=== PATIENT | male | born 1940 | race Caucasian/White ===

== ENCOUNTER 2022-01-08 17:50 | Inpatient (IN) | payer MEDICARE, OTHER ==
[~2022-01-08] VITALS: Ht 190.5 cm; Wt 94.4 kg
[2022-01-08 19:00] VITALS: BP 125/51
[2022-01-08] MEDS: PATCH REMOVAL. MC SCH (21:00)
[2022-01-08] MEDS ORDERED: LISI20TA18 PO (21:23)
[2022-01-08] MEDS ORDERED: SIMV40TA18 PO (21:23)
[2022-01-08] MEDS ORDERED: APIX5TAB PO (21:23)
[2022-01-08] MEDS ORDERED: METO50TA4 PO (21:23)
[2022-01-08] MEDS ORDERED: hydrALAZINE 20 MG/ML VIAL. IVP PRN (21:45)
[2022-01-08] MEDS ORDERED: ONDANSETRON PF 4 MG/2 ML VIAL. IVP PRN (21:45)
[2022-01-08] MEDS ORDERED: HYDROmorphone 2 MG/ML INJ. IVP PRN (21:45)
[2022-01-08] MEDS ORDERED: fentaNYL PF VIAL 100 MCG/2 ML VIAL IVP PRN (21:45)
[2022-01-08] MEDS ORDERED: ACETAMINOPHEN 325 MG TABLET. PO PRN (21:45)
[2022-01-08] MEDS ORDERED: POLYETHYLENE GLYCOL 3350 17 GM PACKET. PO PRN (21:45)
[2022-01-08] MEDS ORDERED: oxyCODONE IR 5 MG TABLET PO PRN (21:45)
[2022-01-08] MEDS ORDERED: guaiFENesin DM 200MG/20MG 10 ML SYRUP PO PRN (21:45)
[2022-01-08] MEDS: PSYLLIUM HUSK (SUGAR FREE) 1 PKT PACKET PO SCH (22:00)
[2022-01-08 23:00] VITALS: BP 126/49
[2022-01-09 03:00] VITALS: BP 121/57
[2022-01-09] MEDS: traMADol 50 MG TABLET PO PRN ×2 (06:39→16:15)
[2022-01-09 07:00] VITALS: BP 117/55
--- NOTE | 2022-01-09 08:35 | PDOC1 ---
History and Physical Date of Service: DOS: DATE: 01/09/22 TIME: 08:20 Chief Complaint: Chief Complain: Fall History of Present Illness: HPI: 81-year-old male coming in for right posterior rib pain. Patient states he was out gardening and stepped backwards and lost his balance and fell onto his right back. Denies any history of loss of consciousness. Patient is also complaining of a scrape to his right knee. Patient is currently taking Eliquis. Patient states he feels like he has been fractures. Past Medical/Surgical History: PMH/PSH: Past Medical History: Arthritis, DVT, High Cholesterol, Hypertension, Kidney Stones, pulmonary embolism; A FLUTTER Past Surgical History: Appendectomy, Hip Replacement, Tonsillectomy, ABD HERNIA X 5; LEFT ANKLE; RIGHT ELBOW Allergies: Allergies: Coded Allergies: ampicillin (Verified Allergy, Intermediate, Hives, 01/08/22) ibuprofen (Verified Allergy, Intermediate, 01/08/22) Family History: Family History: Reviewed with no relative findings in the chart Social History: Social History: Denies any alcohol, tobacco or drug abuse Current Medications: Current Medications Current Medications Acetaminophen (Tylenol) 650 mg PRN Q6HRS PRN PO MILD PAIN / TEMP > 100.3'F; Start 01/08/22 at 21:45 Ondansetron HCl (Zofran) 4 mg PRN Q4HRS PRN IVP NAUSEA/VOMITING 1ST CHOICE; Start 01/08/22 at 21:45 Tramadol HCl (Ultram) 50 mg PRN Q6HRS PRN PO MODERATE PAIN 4-6 Last administered on 01/09/22at 06:39; Start 01/08/22 at 21:45 Guaifenesin (Robitussin Dm) 10 ml PRN Q6HRS PRN PO COUGH; Start 01/08/22 at 21:45 Hydralazine HCl (Apresoline Inj) 10 mg PRN Q4HRS PRN IVP ELEVATED BP, SEE COMMENTS; Start 01/08/22 at 21:45 Fentanyl Citrate (Fentanyl 2ml Vial) 25 mcg PRN Q3HRS PRN IVP SEVERE PAIN 7-10; Start 01/08/22 at 21:45 Hydromorphone HCl (Dilaudid) 0.5 mg PRN Q3HRS PRN IVP SEVERE PAIN 7-10; Start 01/08/22 at 21:45 Oxycodone HCl (Roxicodone) 5 mg PRN Q6HRS PRN PO SEVERE PAIN 7-10; Start 01/08/22 at 21:45 Psyllium Hydrophilic Mucilloid (Metamucil Fiber Packet) 1 pkt QHS PO ; Start 01/08/22 at 22:00 Polyethylene Glycol (miraLAX PACKET) 17 gm PRN BID PRN PO CONSTIPATION 1ST CHOICE; Start 01/08/22 at 21:45 Lidocaine (Lidoderm) 1 patch DAILY TD ; Start 01/09/22 at 09:00 Miscellaneous (Lidoderm Patch Removal) 1 ea QHS MC ; Start 01/08/22 at 21:00 Active Scripts Active Reported Toprol XL (Metoprolol Succinate) 50 Mg Tab.er.24h 50 Mg PO QHS Simvastatin 40 Mg Tablet 40 Mg PO HS Lisinopril 20 Mg Tablet 20 Mg PO DAILY Eliquis (Apixaban) 5 Mg Tablet 5 Mg PO BID ROS: Review of Systems Review of System REVIEW OF SYSTEMS: GENERAL: Denies weakness SKIN: No bruising, hair changes or rashes. EYES: No blurred, double or loss of vision. NOSE AND THROAT: No history of nosebleeds, hoarseness or sore throat. HEART: No history of palpitations, chest pain or shortness of breath on exertion. LUNGS: Denies cough, hemoptysis, wheezing or shortness of breath. GASTROINTESTINAL: Denies changes in appetite, nausea, vomiting, diarrhea or constipation. GENITOURINARY: No history of frequency, urgency, hesitancy or nocturia. NEUROLOGIC: Denies history of numbness, tingling, or tremor. PSYCHIATRIC: No history of panic, anxiety or depression. ENDOCRINE: No history of heat or cold intolerance, polyuria or polydipsia. EXTREMITIES: Denies joint pain, pain on walking or stiffness. Physical Exam: Vital Signs: Vital Signs Date Time Temp Pulse Resp B/P (MAP) Pulse Ox O2 Delivery O2 Flow Rate FiO2 01/09/22 07:00 98.1 52 18 117/55 (75) 100 NonRebreather Mask 10.0 98.1 Physcial Exam: General: Well developed, well nourished, no acute distress, well appearing HEENT: Pupils equally round and reactive to light, EOMI, no discharge, normal conjunctiva Neck: Supple, no nuchal rigidity, no JVD, trachea midline, no tenderness Cardiac: RRR, no murmurs, no gallops, no rubs Chest/Lungs: CTAB, no wheeze, no rhonchi, no crackles. Tender to palpation over the right posterior chest wall. No step-offs or deformities of the back. Abdomen: soft, non-distended, no guarding, no peritoneal signs, non-tender Back: No point tenderness Extremities: no edema, pulses intact, non-tender,capillary refill <3 sec bilateral upper and lower extremities, Neuro: Alert and oriented x 4, no focal deficits, normal speech Labs: Labs: Labs from [facility] significant for BUN of 29 creatinine of 1.5, WBC 9.6 hemoglobin of 14.7 platelet count of 166. INR 1.0 Images: Images PROCEDURE: CT CHEST ABDOMEN PELVIS WO ADDENDUM ADDENDUM #1 Addendum: The exam also includes CT images of the chest, abdomen and pelvis without contrast. Chest: There is a trace right pleural effusion. There is a small right pneumothorax. There is slight angulation of the cortex of the anterior right third and fourth and fifth ribs likely due to nondisplaced fractures. There is also a minimally angulated fracture involving the lateral right sixth rib and mildly displaced fracture involving the lateral right seventh rib. There are healed fractures involving the anterior right ninth, tenth and eleventh ribs. No acute contralateral rib fracture is seen. There are degenerative changes involving the thoracic spine. No acute thoracic vertebral fracture is seen. There is right greater than left posterior dependent and basilar atelectasis. There is a 3 mL nodule within the left lung apex. There is a 2 mm nodule within the right lung apex. There is a small suspected pulmonary contusion involving the anterior superior right upper lobe. The heart is normal in size. There is coronary artery calcification. There is no lymphadenopathy. There is a tiny hiatal hernia. Abdomen and pelvis: No hepatic lesion is seen. The gallbladder is unremarkable. There are few pancreatic calcifications due to chronic pancreatitis. There is no acute pancreatitis. There is a small cyst or hemangioma within the spleen. There is no acute splenic finding. The adrenal glands are unremarkable. There is a 5 mm nonobstructing right renal stone. There is a 1.8 cm exophytic cyst within the lower pole of the left kidney. There is renal atrophy. There is no appendicitis. There is no bowel obstruction. There is no abnormal bowel wall thickening. The bladder is unremarkable. The prostate is enlarged. There is evidence of prior right inguinal hernia repair. There is a moderate fat-containing left internal hernia status post hernia repair. There is aortic and aortic branch vessel atherosclerosis. There is an IVC filter in expected position. There is a left hip arthroplasty. There is mild right hip osteoarthritis. There is lumbar scoliosis and multilevel degenerative listhesis. There is a moderate chronic appearing compression fracture with superior endplate Schmorl's node at L3. There is a chronic mild anterior wedge compression fracture at T12. The combination of degenerative changes results in significant foraminal and central canal stenosis at multiple lumbar levels. IMPRESSION: 1. Small right pneumothorax and trace right pleural effusion, likely a hemothorax. 2. Acute right sixth and seventh rib fractures and likely right third, fourth and fifth rib fractures. There are also chronic appearing right ninth, tenth and eleventh rib fractures. 3. Chronic appearing T12 and L3 compression fractures. 4. Tiny apical pulmonary nodules measuring up to 3 mm. Follow up can be performed in 1 year if there are risk factors for neoplasm. 5. 1.8 cm left renal cyst and right nephrolithiasis. 6. Moderate left inguinal hernia and bilateral hernia repair. EXAM: Head and cervical spine CT without contrast. HISTORY: Fall. Pain. TECHNIQUE: Computed tomographic images of the head and cervical spine were obtained without contrast. *One or more of the following individualized dose reduction techniques were utilized for this examination: 1. Automated exposure control. 2. Adjustment of the mA and/or kV according to patient size. 3. Use of iterative reconstruction technique. COMPARISON: 05/19/2018. FINDINGS: Head: There is no intracranial hemorrhage. There is no mass effect or midline shift. There is no hydrocephalus. There is cerebral atrophy. There are cerebral white matter changes due to chronic small vessel disease. There is an incidental right choroid fissure cyst. There is right paranasal sinus opacification due to suspected sinusitis. The mastoid air cells are clear. There is no suspicious calvarial lesion. Cervical spine:. There is minimal multilevel degenerative listhesis. There is multilevel endplate remodeling, disc space narrowing and osteophytosis. There is chronic mild decreased anterior vertebral body height at C5. There is multilevel facet and uncovertebral arthropathy. There are multiple disc bulges and small disc protrusions and disc osteophyte complexes. The combination of degenerative changes results in mild right foraminal stenosis at C3-C4, moderate right and mild left foraminal stenosis and mild central canal stenosis at C4-C5, moderate right and mild left foraminal stenosis at C5-C6, and moderate bilateral foraminal stenosis at C6-C7. There is calcified atherosclerotic plaque involving the carotid bifurcations. The airways midline and patent. There is biapical pleural parenchymal scarring. IMPRESSION: 1. No acute intracranial finding or evidence of acute cervical spine trauma. 2. Cerebral white matter changes due to chronic small vessel disease. 3. Cerebral atrophy. 4. Degenerative change involving the cervical spine, resulting in stenosis at the aforementioned levels. Assessment/Plan Assessment/Plan Mechanical fall Small right pneumothorax and trace right pleural effusion, likely a hemothorax. Acute right sixth and seventh rib fractures and likely right third, fourth and fifth rib fractures. There are also chronic appearing right ninth, tenth and eleventh rib fractures. Chronic appearing T12 and L3 compression fractures. Tiny apical pulmonary nodules measuring up to 3 mm. Follow up can be performed in 1 year if there are risk factors for neoplasm. 1.8 cm left renal cyst and right nephrolithiasis. BRAYDEN due to vasomotor nephropathy History of DVT/PE History of hypertension History of atrial flutter Admit to hospitalist service for further management General surgery consult Pulmonary consult Incentive spirometer IV and p.o. pain control Repeat chest x-ray in the morning PT OT SCD for DVT prophylaxis Cardiac diet CODE STATUS full Discussed with RN and SW Disposition pending evaluation from consultants above DPOA: Justifications for Admission Chest Pain Indications Respiratory Distress?: Yes Justification for admission: Patient's respiratory distress as indicated by (SOB/tachypnea/abnormal breathing pattern plus hypoxemia/AMS/other evidence of respiratory compromise such as pulmonary edema on chest x-ray) will need inpatient level of care. Other Justification REBECCA SILVERMAN MD January 09, 2022 08:35
[2022-01-09] MEDS: LIDOCAINE (700MG/PATCH) PATCH. TD SCH (09:00)
[2022-01-09 10:39] VITALS: BP 146/64
--- NOTE | 2022-01-09 11:41 | PDOC2 ---
CONSULT Date of Consult Date of Consult DATE: 01/09/22 TIME: 11:33 Reason for Consult Reason for Consult: trauma, fall Referring Physician Referring Physician: ER Identification/Chief Complaint Chief Complaint fall Source Source: Chart review, Patient History of Present Illness Reason for Visit: Fell back on gravel while gardening, right sided pain. Denies LOC. No abdominal pain, no nausea or emesis reports knee pain he does take eliquis Past Medical History Cardiovascular: CHF Psych: Anxiety Past Surgical History Past Surgical History: No pertinent history Family History Family History: Other (noncontributory to current illness) Social History No ALCOHOL: none Lives: with Family Current Medications Current Medications Current Medications Acetaminophen (Tylenol) 650 mg PRN Q6HRS PRN PO MILD PAIN / TEMP > 100.3'F; Start 01/08/22 at 21:45 Ondansetron HCl (Zofran) 4 mg PRN Q4HRS PRN IVP NAUSEA/VOMITING 1ST CHOICE; Start 01/08/22 at 21:45 Tramadol HCl (Ultram) 50 mg PRN Q6HRS PRN PO MODERATE PAIN 4-6 Last administered on 01/09/22at 06:39; Start 01/08/22 at 21:45 Guaifenesin (Robitussin Dm) 10 ml PRN Q6HRS PRN PO COUGH; Start 01/08/22 at 21:45 Hydralazine HCl (Apresoline Inj) 10 mg PRN Q4HRS PRN IVP ELEVATED BP, SEE COMMENTS; Start 01/08/22 at 21:45 Fentanyl Citrate (Fentanyl 2ml Vial) 25 mcg PRN Q3HRS PRN IVP SEVERE PAIN 7-10; Start 01/08/22 at 21:45 Hydromorphone HCl (Dilaudid) 0.5 mg PRN Q3HRS PRN IVP SEVERE PAIN 7-10; Start 01/08/22 at 21:45 Oxycodone HCl (Roxicodone) 5 mg PRN Q6HRS PRN PO SEVERE PAIN 7-10; Start 01/08/22 at 21:45 Psyllium Hydrophilic Mucilloid (Metamucil Fiber Packet) 1 pkt QHS PO ; Start 01/08/22 at 22:00 Polyethylene Glycol (miraLAX PACKET) 17 gm PRN BID PRN PO CONSTIPATION 1ST CHOICE; Start 01/08/22 at 21:45 Lidocaine (Lidoderm) 1 patch DAILY TD ; Start 01/09/22 at 09:00 Miscellaneous (Lidoderm Patch Removal) 1 ea QHS MC ; Start 01/08/22 at 21:00 Active Scripts Active Reported Toprol XL (Metoprolol Succinate) 50 Mg Tab.er.24h 50 Mg PO QHS Simvastatin 40 Mg Tablet 40 Mg PO HS Lisinopril 20 Mg Tablet 20 Mg PO DAILY Eliquis (Apixaban) 5 Mg Tablet 5 Mg PO BID Allergies Allergies: Coded Allergies: ampicillin (Verified Allergy, Intermediate, Hives, 01/08/22) ibuprofen (Verified Allergy, Intermediate, 01/08/22) ROS General: No: Chills, Other (fevers ) PSYCHOLOGICAL ROS: No: Anxiety, Depression Eyes: No Blurry vision, No Double vision HEENT: No: Heacaches, Sore Throat Hematological and Lymphatic: YES: Bleeding Problems; No: Blood Clots Respiratory: YES: Shortness of breath (improving); No: Cough Cardiovascular: No Chest Pain, No Palpitations Gastrointestinal: Yes Other (see hpi) Genitourinary: No Dysuria, No Hematuria Musculoskeletal: Yes Joint Pain (knee); No Muscular Weakness Neurological: No Numbness/Tingling Skin: No Pruritus, No Rash Physical Exam General: Alert, Oriented X3, Cooperative HEENT: Atraumatic, PERRLA Lungs: Normal air movement, Other (on ) Heart: Regular rate, Normal S1, Normal S2 Abdomen: Soft, No tenderness, No hepatosplenomegaly Extremities: No clubbing, No cyanosis Skin: No rashes Neuro: Normal gait, Normal speech Psych/Mental Status: Mental status NL, Mood NL MUSCULOSKELETAL: No deformity, No swelling Vitals VITALS Vital Signs Date Time Temp Pulse Resp B/P (MAP) Pulse Ox O2 Delivery O2 Flow Rate FiO2 01/09/22 10:39 98.0 59 18 146/64 (91) 100 NonRebreather Mask 10.0 98.0 Assessment/Plan Assessment/Plan fall, small pneumo/hemo cxr pending 02 as needed, pulm consult IS, ambulate CASSI KIRKPATRICK APRN January 09, 2022 11:41
--- NOTE | 2022-01-09 12:22 | CONS ---
DATE OF CONSULTATION: 01/09/2022 ATTENDING PHYSICIAN: Dr. Damion Tucker. REASON FOR CONSULTATION: Pneumothorax abnormal CT chest. HISTORY OF PRESENT ILLNESS: The patient is a 81-year-old male who was out gardening and stepped backwards and lost his balance and fell in his backyard on the right side. The patient has had no loss of consciousness. He bruised his right knee. 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 The patient was seen at [facility]. I have reviewed the patient's CT chest, abdomen and pelvis. The patient has a tiny right pleural effusion. The patient also was noted to have a small right apical pneumothorax. There were acute right sixth and seventh rib fractures and also likely third, fourth and fifth rib fractures. There were tiny 3 mm apical pulmonary nodules. The patient was placed on a nonrebreather mask for the treatment of pneumothorax. This morning, I reviewed the patient's chest x-ray. He does have some atelectasis in the right lower lobe. I do not see a definite pneumothorax. The patient has no history of tobacco use. The patient states that he has history of pulmonary embolism 8 years ago. He had a left DVT as well. The patient was on Eliquis, took it for 6 months. He then stopped it. He had recurrent pulmonary emboli in 2006. He has been on Eliquis since then. Also has an IVC filter. PAST MEDICAL HISTORY: History of DVT and pulmonary embolism 8 years ago. Then, recurrent in 2016. History of hypertension, renal stones. PAST SURGICAL HISTORY: Appendectomy, hip replacement, abdominal hernia surgery x 5. ALLERGIES: AMPICILLIN AND IBUPROFEN. MEDICATIONS: Reviewed as listed in the MRAD. Eliquis was on hold. REVIEW OF SYSTEMS: Twelve-point system obtained. Pertinent positives discussed in my present illness, otherwise noncontributory. All systems that were negative were reviewed as well. SOCIAL HISTORY: Denies significant tobacco use. FH: Non contributary to lungs. PHYSICAL EXAMINATION: VITAL SIGNS: Reviewed. Blood pressure stable, pulse ox 100% on a nonrebreather mask at 100% FiO2. Afebrile. NECK: Supple. LUNGS: With slightly diminished breath sounds right base. CARDIOVASCULAR: With a regular rate. ABDOMEN: Soft, obese. EXTREMITIES: With bruising of the right knee. LABORATORY DATA: Labs have not been done at this facility. CT chest and x-ray findings are discussed above. IMPRESSION: 1. Acute hypoxic respiratory failure secondary to traumatic pneumothorax with multiple rib fractures. The pneumothorax is small about 5% and not well seen on a follow up chest x-ray today. 2. Probably tiny right basal hemothorax. Not clinically significant. 3. Abnormal chest x-ray. He does have increased atelectasis at the right base. It could be lung contusion as well. 4. Abnormal CT chest with multiple right anterior rib fractures including right sixth, seventh rib fractures and right third, fourth and fifth rib fractures. He also has tiny apical nodule, which is 3 mm in size. He is at low risk for neoplasm. Follow up in a year would be reasonable. 5. h/o recurrent Pulmonary Emboli, on chronic Eliquis. h/o IVC filter RECOMMENDATIONS: 1. The patient's pneumothorax is stable and improved. We will discontinue nonrebreather mask. 2. Follow up another chest x-ray in a.m. 3. Pain control. 4. Incentive spirometry. 5. Repeat CT chest in a year regarding the tiny lung nodules. 6. Monitor hemoglobin closely.hold eliquis 7. Discussed with Dr. Tucker yesterday and discussed with RN. We will follow along with you. Chart reviewed, imaging studies reviewed. DVAID DR: Ansley TID: [id number] MTDD
--- NOTE | 2022-01-09 12:23 | RAD ---
EXAM: Chest, single view. HISTORY: Pneumothorax. COMPARISON: CT dated 01/08/2022. FINDINGS: A frontal view of the chest is obtained. There is a tiny right thorax. This is likely decre ased compared to a CT performed one day prior. There is right lower lobe atelectasis or infiltrate an d a suspected trace right pleural effusion. There are displaced right sixth and seventh rib fractures . The additional suspected rib fractures are not well seen radiographically. The heart is normal in s ize. There is lingular and left lower lobe atelectasis. IMPRESSION: 1. Tiny right pneumothorax, likely decreased compared to the comparison CT when allowing for differen juan c in imaging modality. 2. Right lower lobe atelectasis or infiltrate and trace right pleural effusion. 3. Lingular and left lower lobe atelectasis. 4. Mildly displaced right rib fractures, better characterized on the recent CT. Electronically signed by: Diana Winter MD (01/09/2022 8:39 AM) [id number]
[2022-01-09 15:00] VITALS: BP 127/62
--- NOTE | 2022-01-09 15:39 | NUR ---
SS following for discharge planning. SS reviewed pt chart and discussed with pt RN. Pt is from home with spouse and is currently requiring oxygen at two liters nasal canula. Surgery and Pulmonology following. No surgical plans at this time. Pt has no home oxygen. PT/OT ordered. SS will continue to follow for discharge planning.
[2022-01-09 19:00] VITALS: BP 127/56
[2022-01-09] MEDS: PATCH REMOVAL. MC SCH (20:41)
[2022-01-09] MEDS: PSYLLIUM HUSK (SUGAR FREE) 1 PKT PACKET PO SCH (20:41)
[2022-01-09 23:00] VITALS: BP 128/66
[2022-01-10 03:00] VITALS: BP 122/52
[2022-01-10 07:00] VITALS: BP 144/66
--- NOTE | 2022-01-10 08:27 | RAD ---
EXAM: Chest, single view. HISTORY: Pneumothorax. COMPARISON: 01/09/2022 FINDINGS: A frontal view of the chest is obtained. There is a stable suspected tiny right pneumothora x. There is decreased right lower lobe atelectasis, infiltrate or contusion. There is a stable cardia c silhouette. There is stable lingular atelectasis or scarring. There are displaced right rib fractur es, better characterized on the comparison CT. IMPRESSION: 1. Stable suspected tiny right pneumothorax. 2. Decreased right lower lobe atelectasis, infiltrate or contusion. 3. Right rib fractures. Electronically signed by: Diana Winter MD (01/10/2022 8:24 AM) [id number]
[2022-01-10] MEDS: LIDOCAINE (700MG/PATCH) PATCH. TD SCH (09:00)
--- NOTE | 2022-01-10 10:45 | PDOC ---
PULMONARY PROGRESS NOTES DATE: 01/10/22 TIME: 10:43 Subjective Patient feels better. Still has rib pain. Control with narcotics Vitals Vital Signs Date Time Temp Pulse Resp B/P (MAP) Pulse Ox O2 Delivery O2 Flow Rate FiO2 01/10/22 07:45 Nasal Cannula 2.0 01/10/22 07:00 98.2 56 18 144/66 (92) 95 98.2 General: Alert, No acute distress Lungs: Clear Cardiovascular: S1 Abdomen: Soft Neuro Exam: Alert Extremities: No Edema Skin: Warm Medications Active Scripts Medications Dose Route/Sig Max Daily Dose Days Date Category Toprol XL (Metoprolol Succinate) 50 Mg Tab.er.24h 50 Mg PO QHS 01/08/22 Reported Simvastatin 40 Mg Tablet 40 Mg PO HS 01/08/22 Reported Lisinopril 20 Mg Tablet 20 Mg PO DAILY 01/08/22 Reported Eliquis (Apixaban) 5 Mg Tablet 5 Mg PO BID 01/08/22 Reported Impression . 1. Acute hypoxic respiratory failure secondary to traumatic pneumothorax with multiple rib fractures. The pneumothorax is small about 5% and not well seen on a follow up chest x-ray today. 2. Probably tiny right basal hemothorax. Not clinically significant. 3. Abnormal chest x-ray. He does have increased atelectasis at the right base. It could be lung contusion as well. 4. Abnormal CT chest with multiple right anterior rib fractures including right sixth, seventh rib fractures and right third, fourth and fifth rib fractures. He also has tiny apical nodule, which is 3 mm in size. He is at low risk for neoplasm. Follow up in a year would be reasonable. 5. h/o recurrent Pulmonary Emboli, on chronic Eliquis. h/o IVC filter Plan . 1. The patient's pneumothorax is stable and improved. 2. Follow up another chest x-ray 01/10/2022 was reviewed. Some basal atelectasis. I do not see any clinically significant pneumothorax. 3. Pain control. 4. Incentive spirometry. 5. Repeat CT chest in a year regarding the tiny lung nodules. 6. Monitor hemoglobin closely.holding eliquis 7. Discussed with Dr. Tucker and discussed with RN. We will follow along with you. Possible discharge in next 24 hours. LUIS MIGUEL LOCO MD January 10, 2022 10:45
[2022-01-10 11:00] VITALS: BP 170/56
[2022-01-10] MEDS: traMADol 50 MG TABLET PO PRN (11:33)
--- NOTE | 2022-01-10 13:41 | NUR ---
SS following up with discharge planning. SS reviewed pt chart and discussed with pt RN. Pt is currently requiring oxygen at two liters nasal canula. Surgery and Pulmonology following. PT/OT recommended home independent. SS will continue to follow for discharge planning.
[2022-01-10] MEDS ORDERED: OXYC5TAB4 PO (14:50)
[2022-01-10] MEDS ORDERED: SENN1TAB99 PO ×2 (14:50→16:23)
[2022-01-10] MEDS ORDERED: OXYC1TAB15 PO ×2 (14:51→16:23)
--- NOTE | 2022-01-10 14:54 | DISCH ---
DISCHARGE INSTRUCTIONS Condition on Discharge Condition on Discharge: Stable Activity After Discharge Activity Instructions for Disc: Activity as tolerated, Avoid exertion Lifting Instructions after Dis: Do not lift >10 pounds Exercise Instruction after Dis: Walk 30 min, 5 x per week Driving Instructions after Dis: Do not drive today Weight Bearing Status after Di: Full weight bearing, As tolerated Diet after Discharge Diet after Discharge: Cardiac Follow-Up Follow up with: PCP within 2 weeks of discharge Follow Up With: Pulmonary as needed or as scheduled REBECCA SILVERMAN MD January 10, 2022 14:54
[2022-01-10 15:00] VITALS: BP 150/54
--- NOTE | 2022-01-10 17:00 | NUR ---
Discharge Note: PT DISCHARGED HOME WITH SELF CARE. PT LEFT FACILITY VIA PRIVATE VEHICLE WITH SON AT 1700. PT STABLE AND ALERT UPON DISCHARGE. PT PIV REMOVED FROM R AC WITHOUT COMPLICATIONS, BANDAGE APPLIED. PT TELE MONITOR REMOVED. PT EDUCATED ABOUT DISCHARGE INSTRUCTIONS, DISCHARGE MEDICATIONS, AND FOLLOW-UP CARE INSTRUCTIONS, NO CONCERNS VOICED AT THIS TIME. PT LEFT WITH ALL PERSONAL BELONGINGS. PALMA MCNAIR Discharge instructions and discharge home medications reviewed with Patient and a copy given. All questions have been answered and understanding verbalized.
== END 2022-01-10 17:00 | disposition home or self-care (01) | DRG 199 ==
LOC: 5 NORTH 17:50
PROVIDERS: ADMIT Internal Medicine; ATTEND Internal Medicine
DX: S27.0XXA Traumatic pneumothorax, initial encounter (principal); N17.0 Acute kidney failure with tubular necrosis; J96.01 Acute respiratory failure with hypoxia; S22.41XA Multiple fractures of ribs, right side, initial encounter for closed fracture; J94.2 Hemothorax; J98.11 Atelectasis; K86.1 Other chronic pancreatitis; W01.0XXA Fall on same level from slipping, tripping and stumbling without subsequent striking against object, initial encounter; D18.00 Hemangioma unspecified site; E78.00 Pure hypercholesterolemia, unspecified; I11.0 Hypertensive heart disease with heart failure; I25.10 Atherosclerotic heart disease of native coronary artery without angina pectoris; I50.9 Heart failure, unspecified; I65.29 Occlusion and stenosis of unspecified carotid artery; K40.90 Unilateral inguinal hernia, without obstruction or gangrene, not specified as recurrent; M16.11 Unilateral primary osteoarthritis, right hip; M25.78 Osteophyte, vertebrae; M41.9 Scoliosis, unspecified; M47.814 Spondylosis without myelopathy or radiculopathy, thoracic region; M48.02 Spinal stenosis, cervical region; M51.46 Schmorl's nodes, lumbar region; N20.0 Calculus of kidney; N28.1 Cyst of kidney, acquired; N40.0 Benign prostatic hyperplasia without lower urinary tract symptoms; Y92.007 Garden or yard of unspecified non-institutional (private) residence as the place of occurrence of the external cause; Z79.01 Long term (current) use of anticoagulants; Z86.711 Personal history of pulmonary embolism; Z86.718 Personal history of other venous thrombosis and embolism; Z87.442 Personal history of urinary calculi; Z95.828 Presence of other vascular implants and grafts; Z96.642 Presence of left artificial hip joint; F41.9 Anxiety disorder, unspecified; M19.90 Unspecified osteoarthritis, unspecified site; Z88.8 Allergy status to other drugs, medicaments and biological substances; Y93.H2 Activity, gardening and landscaping; Y99.8 Other external cause status
CPT/HCPCS: 71045; 94760; G0238; 97116-GP; G0378